=== PATIENT | female | born 1985 | race Caucasian/White ===

== ENCOUNTER 2018-10-04 15:28 | Emergency (ER) | payer SELFPAY ==
[~2018-10-04] VITALS: Ht 154.9 cm; Wt 52.7 kg
[2018-10-04 15:40] VITALS: Ht 154.9 cm; Wt 52.7 kg
[2018-10-04] MEDS ORDERED: TORADOL10 MG PO (17:49)
[2018-10-04 18:18] VITALS: BP 110/61
== END 2018-10-04 18:19 | disposition home or self-care (01) ==
LOC: D.ER 15:28
DX: S93.402A Sprain of unspecified ligament of left ankle, initial encounter (principal); W10.9XXA Fall (on) (from) unspecified stairs and steps, initial encounter; Y93.89 Activity, other specified; Y92.019 Unspecified place in single-family (private) house as the place of occurrence of the external cause; S83.92XA Sprain of unspecified site of left knee, initial encounter

== ENCOUNTER 2019-08-14 15:59 | Emergency (ER) | payer SELFPAY ==
[~2019-08-14] VITALS: Ht 154.9 cm; Wt 50.0 kg
[~2019-08-14 15:59] MED LIST: TORADOL10 MG PO
[2019-08-14 16:18] VITALS: Ht 154.9 cm; Wt 50.0 kg
[2019-08-14] MEDS ORDERED: PENICILLIN V P500 MG PO (18:14)
[2019-08-14 18:48] VITALS: BP 111/47
== END 2019-08-14 18:48 | disposition home or self-care (01) ==
LOC: D.ER 15:59
DX: K08.89 Other specified disorders of teeth and supporting structures (principal); Z72.0 Tobacco use

== ENCOUNTER 2019-10-07 17:00 | Emergency (ER) | payer MEDICAID ==
[~2019-10-07] VITALS: Ht 154.9 cm; Wt 50.0 kg
[~2019-10-07 17:00] MED LIST changes: +PENICILLIN V P500 MG PO
[2019-10-07 17:22] VITALS: Ht 154.9 cm; Wt 50.0 kg
[2019-10-07] MEDS ORDERED: AMOXICILLIN500 M1 PO (18:03)
[2019-10-07 18:48] VITALS: BP 102/64
== END 2019-10-07 18:50 | disposition home or self-care (01) ==
LOC: D.ER 17:00
DX: K02.9 Dental caries, unspecified (principal)